=== PATIENT | female | born 1990 | race Caucasian/White ===

== ENCOUNTER 2017-07-14 18:12 | Emergency (ER) | payer SELFPAY ==
[~2017-07-14] VITALS: Ht 175.3 cm; Wt 104.2 kg
--- NOTE | 2017-07-14 18:18 | ED.ADGEN ---
Past History Past Medical History: STD, UTI Adult General Chief Complaint Chief Complaint " I think I got a yeast infection.. I did the over the counter stuff.. but I still have the itchy discharge... I have had previous STD- HPV.... " HPI HPI Patient is a 26 year old female who presents with above hx and complaints vaginal discharge. Patient use [id number] nystatin with no relief of symptoms. Patient complaining of severe itching and burning of labia and foul- smelling discharge. Patient does have a history of HPV. Patient has had 6 lifetime sex partners. Patient is currently practicing unprotected sex. No history of . No history immunosuppression. No recent travel. No specific ill contacts identified. Review of Systems Review of Systems Constitutional: Denies fever or chills [] Eyes: Denies change in visual acuity, redness, or eye pain [] HENT: Denies nasal congestion or sore throat [] Respiratory: Denies cough or shortness of breath [] Cardiovascular: No additional information not addressed in HPI [] GI: Denies abdominal pain, nausea, vomiting, bloody stools or diarrhea [] : Denies dysuria or hematuria []complaining of vaginal discharge and itching Musculoskeletal: Denies back pain or joint pain [] Integument: Denies rash or skin lesions [] Neurologic: Denies headache, focal weakness or sensory changes [] Endocrine: Denies polyuria or polydipsia [] All other systems were reviewed and found to be within normal limits, except as documented in this note. Family History Family History Noncontributory Current Medications Current Medications Current Medications Medications (Trade) Dose Ordered Sig/Joao Start Time Stop Time Status Last Admin Dose Admin Azithromycin (Zithromax) 1 gm 1X ONCE 07/14/17 20:00 07/14/17 20:01 DC 07/14/17 19:59 1 GM Ceftriaxone Sodium (Rocephin Im) 1 gm 1X ONCE 07/14/17 20:00 07/14/17 20:01 DC 07/14/17 19:58 1 GM Metronidazole (Flagyl) 2,000 mg 1X ONCE 07/14/17 20:00 07/14/17 20:01 DC 07/14/17 19:59 2,000 MG Ondansetron HCl (Zofran Odt) 8 mg 1X ONCE 07/14/17 20:00 07/14/17 20:01 DC 07/14/17 19:57 8 MG Allergies Allergies Allergies Coded Allergies Type Severity Reaction Last Updated Verified sulfamethoxazole Allergy Unknown 07/14/17 Yes trimethoprim Allergy Unknown 07/14/17 Yes Physical Exam Physical Exam Constitutional: Well developed, well nourished, no acute distress, non-toxic appearance. [] HENT: Normocephalic, atraumatic, bilateral external ears normal, oropharynx moist, no oral exudates, nose normal. [] Eyes: PERRLA, EOMI, conjunctiva normal, no discharge. [] Neck: Normal range of motion, no tenderness, supple, no stridor. [] Cardiovascular:Heart rate regular rhythm, no murmur [] Lungs & Thorax: Bilateral breath sounds clear to auscultation [] Abdomen: Bowel sounds normal, soft, no tenderness, no masses, no pulsatile masses. Obese.[] Vaginal discharge yellow in color. Does have a fishy odor. Has marked cervicitis and inflammation of the vaginal chavez and labia. Some cervical motion tenderness. No adnexal tenderness. Rectal hard stool in vault. Skin: Warm, dry, no erythema, no rash. Folliculitis in pelvic area where she is shaved her pubic hair Back: No tenderness, no CVA tenderness. [] Extremities: No tenderness, no cyanosis, no clubbing, ROM intact, no edema. [] Neurologic: Alert and oriented X 3, normal motor function, normal sensory function, no focal deficits noted. [] Psychologic: Affect anxious, judgement normal, mood normal. [] Current Patient Data Vital Signs Vital Signs Date Time Temp Pulse Resp B/P (MAP) Pulse Ox O2 Delivery O2 Flow Rate FiO2 07/14/17 20:25 98.6 92 18 132/79 (96) 99 Room Air Lab Results Laboratory Tests Test 07/14/17 17:39 07/14/17 18:30 POC Urine HCG, Qualitative hcg negative (Negative) Urine Collection Type Unknown Urine Color Yellow Urine Clarity Hazy Urine pH 5.5 Urine Specific [place] <=1.005 Urine Protein Neg (NEG-TRACE) Urine Glucose (UA) Neg mg/dL (NEG) Urine Ketones (Stick) Neg mg/dL (NEG) Urine Blood Neg (NEG) Urine Nitrite Neg (NEG) Urine Bilirubin Neg (NEG) Urine Urobilinogen Dipstick 0.2 mg/dL (0.2 mg/dL) Urine Leukocyte Esterase Large (NEG) Urine RBC Rare /HPF (0-2) Urine WBC 20-40 /HPF (0-4) Urine Squamous Epithelial Cells Occ /LPF Urine Bacteria Few /HPF (0-FEW) Urine Hyaline Casts Occ /HPF Urine Trichomonas Present Microbiology 07/14/17 Wet Prep - Final, Complete Microbiology 07/14/17 Wet Prep - Final, Complete EKG EKG [] Radiology/Procedures Radiology/Procedures [] Course & Med Decision Making Course & Med Decision Making Pertinent Labs and Imaging studies reviewed. (See chart for details). Patient to perform only protected sex. Patient to tell her partner of the STD Trichomonas. Patient to take Keflex 500 mg 3 times a day for 7 days. This may need to be extended pain on culture results. Patient to take nightly vaginal suppositories of MetroGel for 7 days. After completing all antibiotics to do 3 days of Diflucan. Follow-up primary care. Return if any concerns. [] Final Impression Final Impression 1. Vaginal Discharge[] 2. UTI 3. Trichomonas 4. Cervicitis Problems: Dragon Disclaimer Dragon Disclaimer This electronic medical record was generated, in whole or in part, using a voice recognition dictation system. PRITESH LLOYD MD Jul 14, 2017 18:18
[2017-07-14 19:27] LABS: BILIRUBIN,URINE NEG (NEG); CLARITY,URINE HAZY; COLOR,URINE YELLOW; GLUCOSE,URINE NEG (NEG)
[2017-07-14 19:28] LABS: BACTERIA,URINE FEW /HPF (0-FEW); HYALINE CASTS, URINE OCC /HPF; NITRITE,URINE NEG (NEG); RBC,URINE RARE /HPF (0-2); SQUAMOUS EPITHELIAL CELL,UR OCC /LPF; TRICHOMONAS,URINE PRESENT; UROBILINOGEN,URINE 0.2 mg/dL (0.2 mg/dL); WBC,URINE 20-40 /HPF (0-4)
[2017-07-14] MEDS ORDERED: FLUC100T7 PO (19:35)
[2017-07-14] MEDS ORDERED: METR70GE14 VG (19:35)
[2017-07-14] MEDS ORDERED: CEPH-264 PO (19:35)
[2017-07-14] MEDS ORDERED: ONDANSETRON ODT 4 MG TAB.RAPDIS PO ONE (20:00)
[2017-07-14] MEDS ORDERED: cefTRIAXone IM 1 GM VIAL IM ONE (20:00)
[2017-07-14] MEDS ORDERED: AZITHROMYCIN 1 GM PACKET PO ONE (20:00)
[2017-07-14] MEDS ORDERED: metroNIDAZOLE 500 MG TABLET PO ONE (20:00)
[2017-07-14 20:25] VITALS: BP 132/79
[2017-07-16 10:08] LABS: HCV ANTIBODY <0.1 s/co ratio (0.0-0.9); HEP A IGM ABDY Negative (Negative)
[2017-07-16 14:11] LABS: CHLAMYDIA PROBE Negative (Negative)
== END 2017-07-14 20:26 | disposition home or self-care (01) ==
LOC: ER 18:12
DX: A59.9 Trichomoniasis, unspecified (principal); N39.0 Urinary tract infection, site not specified; N72 Inflammatory disease of cervix uteri; Z88.2 Allergy status to sulfonamides; Z88.1 Allergy status to other antibiotic agents
CPT/HCPCS: 36415; 80074; 81001; 81025; 86593; 86703; 87491; 87591; 96372; 99284; J0456; J0696; Q0111; Q0162